=== PATIENT | female | born 1955 | race Caucasian/White ===

== ENCOUNTER → 2018-09-25 10:37 | Outpatient (CLI) | payer OTHER, SELFPAY ==
[2018-09-25 11:16] LABS: Add Manual Diff / Slide Review NO; Basophils Absolute Auto 100 /uL (0-100); Eosinophils Absolute Auto 600 /uL (0-450); Eosinophils Percent Auto 6.4 % (2-4); Hematocrit 44.9 % (36-46); Hemoglobin 15.3 g/dL (12.0-16.0); Lymphocytes Absolute Auto 2800 /uL (1100-4500); Lymphocytes Percent Auto 27.2 % (25-40); Mean Corpuscular HGB Conc 34.1 % (30-36); Mean Corpuscular Hemoglobin 31.3 PG (26-34); Mean Corpuscular Volume 91.7 fL (80-100); Monocytes Absolute Auto 800 /uL (0-900); Monocytes Percent Auto 7.4 % (3-14); Neutrophils Absolute Auto 5900 /uL (1500-7000); Platelet Count 304 X10^3/uL (150-400); Red Cell Distribution Width 13.2 % (11.6-14.8); White Blood Cell Count 10.2 X10^3/uL (4.5-11.0)
[2018-09-25 11:39] LABS: Erythrocyte Sedimentation Rate 6 MM/HR (0-20)
[2018-09-25 11:59] LABS: C-Reactive Protein Quant 1.2 mg/dL (<1.0); Uric Acid 3.7 mg/dL (2.5-6.2)
[2018-09-25 12:02] LABS: Rheumatoid Factor < 8.6 IU/mL (<12.0)
[2018-09-27 19:39] LABS: ANA Screen, IFA Negative (Negative)
== END ==
PROVIDERS: Visit Provider Orthopaedic Surgery
DX: M17.11 Unilateral primary osteoarthritis, right knee (principal); M23.91 Unspecified internal derangement of right knee
CPT/HCPCS: 36415; 84550; 85025; 85651; 86038; 86140; 86430

== ENCOUNTER → 2019-09-03 12:22 | Outpatient (CLI) | payer MEDICARE, OTHER, SELFPAY ==
--- NOTE | 2019-09-03 | DI.US.S_ITS ---
LIMITED ULTRASOUND OF RIGHT BREAST: 09/03/2019 CLINICAL: Right breast masses. Comparison is made to exams dated: 01/23/2019 mammogram - [facility], 12/21/2016 mammogram, and 12/16/2014 mammogram - [facility]. Real-time ultrasound of the right breast lower inner quadrant was performed on the area of interest. No discrete cystic or solid mass lesion identified in the area of palpable abnormality. IMPRESSION: NEGATIVE There is no sonographic evidence of malignancy. There is no abnormality seen in the right breast to correspond with the palpable abnormality in the lower inner quadrant, however, clinical followup is recommended. A 1 year screening mammogram is recommended. This exam was interpreted at Station ID: [id number]. Electronically Signed By: Hipolito sal/:09/03/2019 14:53:07 letter sent: Clinical Evaluation Ultrasound BI-RADS: 1 Negative
--- NOTE | 2019-09-03 | DI.US.S_ITS ---
LIMITED ULTRASOUND OF LEFT BREAST: 09/03/2019 CLINICAL: Left breast masses. Comparison is made to exams dated: 01/23/2019 mammogram - [facility], 12/21/2016 mammogram, and 12/16/2014 mammogram - [facility]. Real-time ultrasound of the left breast lower inner quadrant was performed on the area of interest. No discrete cystic or solid mass lesion identified in the area of palpable abnormality. IMPRESSION: NEGATIVE There is no sonographic evidence of malignancy. There is no abnormality seen in the left breast to correspond with the palpable abnormality in the lower inner quadrant, however, clinical followup is recommended. A 1 year screening mammogram is recommended. This exam was interpreted at Station ID: [id number]. Electronically Signed By: Hipolito sal/:09/03/2019 14:52:18 letter sent: Clinical Evaluation Ultrasound BI-RADS: 1 Negative
--- NOTE | 2019-09-03 | DI.MG.S_ITS ---
BILATERAL DIGITAL DIAGNOSTIC MAMMOGRAM 3D/2D: 09/03/2019 CLINICAL: Bilateral lumps. Comparison is made to exams dated: 01/23/2019 mammogram - [facility], 12/21/2016 mammogram, 12/16/2014 mammogram, 10/09/2012 mammogram, and 08/02/[address] - [facility]. There are scattered fibroglandular elements in both breasts. There are benign grouped fine calcifications within the skin of the right breast inferior region seen on the mediolateral oblique view only. There are benign grouped fine calcifications within the skin of the left breast inferior region seen on the mediolateral oblique view only. No other significant masses or calcifications are seen in either breast. IMPRESSION: INCOMPLETE: NEEDS ADDITIONAL IMAGING EVALUATION There is no abnormality seen in either breast to correspond with the palpable abnormality in the lower inner quadrant, however, ultrasound is recommended. This exam was interpreted at Station ID: [id number]. NOTE: For mammograms, a report in lay terms will be sent to the patient. Approximately 15% of breast malignancies will not be visualized mammographically. In the management of a palpable breast mass, a negative mammogram must not discourage biopsy of a clinically suspicious lesion. Electronically Signed By: Hipolito sal/marie:09/03/2019 13:55:40 ACR BI-RADS Category 0: Incomplete [id number]
== END ==
PROVIDERS: Referring Provider Nurse Practitioner Family; Visit Provider Nurse Practitioner Family
DX: R92.8 Other abnormal and inconclusive findings on diagnostic imaging of breast (principal); R92.1 Mammographic calcification found on diagnostic imaging of breast
CPT/HCPCS: 76642; 77066; G0279

== ENCOUNTER → 2021-12-22 13:32 | Outpatient (CLI) | payer MEDICARE, OTHER, SELFPAY ==
--- NOTE | 2021-12-22 | DI.MG.S_ITS ---
BILATERAL DIGITAL SCREENING MAMMOGRAM 3D/2D WITH CAD: 12/22/2021 CLINICAL: Routine screening. Family history of breast cancer. Comparison is made to exams dated: 09/03/2019 mammogram - [facility], 01/23/2019 mammogram - [facility], and 12/21/2016 mammogram - [facility]. There are scattered fibroglandular elements in both breasts. Current study was also evaluated with a Computer Aided Detection (CAD) system. No significant masses, calcifications, or other findings are seen in either breast. There has been no significant interval change. IMPRESSION: NEGATIVE There is no mammographic evidence of malignancy. A 1 year screening mammogram is recommended. Based on the Tyrer Cuzick model (a risk assessment model) the patient's lifetime risk is 14.6% and her 10 year risk is 8.2%. According to the ACR, ACS, and NCCN guidelines, an annual breast MRI exam along with mammogram is recommended if the patient's lifetime risk is 20% or greater. This exam was interpreted at Station ID: [id number]. NOTE: For mammograms, a report in lay terms will be sent to the patient. Approximately 15% of breast malignancies will not be visualized mammographically. In the management of a palpable breast mass, a negative mammogram must not discourage biopsy of a clinically suspicious lesion. Electronically Signed By: Abisai groves/marie:12/22/2021 14:16:16 letter sent: Normal Exam ACR BI-RADS Category 1: Negative [id number]
== END ==
PROVIDERS: PCP Nurse Practitioner Family; Referring Provider Nurse Practitioner Family; Visit Provider Nurse Practitioner Family
DX: Z12.31 Encounter for screening mammogram for malignant neoplasm of breast (principal); Z80.3 Family history of malignant neoplasm of breast
CPT/HCPCS: 77063; 77067

== ENCOUNTER → 2022-09-30 12:56 | Outpatient (CLI) | payer MEDICARE, OTHER, SELFPAY ==
--- NOTE | 2022-09-30 | DI.RAD.S_ITS ---
PROCEDURE: XR LUMBAR SPINE 2-3V INDICATIONS: LAB PAIN TECHNIQUE: 3 views of the lumbar spine were acquired. COMPARISON: None. FINDINGS: Bones: 5 [id number] vertebrae are present. There is normal bony alignment. No vertebral body compression fractures. No suspicious bony lesions. Severe disc height loss at L4-5. Moderate disc height loss at remaining levels. Facet arthrosis L4 through S1. Soft tissues: Overlying bowel gas pattern is normal. No suspicious soft tissue calcifications. IMPRESSION: Moderate to severe, multilevel degenerative disc disease and lower lumbar facet arthrosis. Dictated by: Hugh Callahan M.D. on 09/30/2022 at 14:48 Approved by: Hugh Callahan M.D. on 09/30/2022 at 14:49
== END ==
PROVIDERS: PCP Nurse Practitioner Family; Referring Provider Chiropractor; Visit Provider Chiropractor
DX: M51.36 Other intervertebral disc degeneration, lumbar region (principal); M47.816 Spondylosis without myelopathy or radiculopathy, lumbar region; M47.817 Spondylosis without myelopathy or radiculopathy, lumbosacral region; M54.50 Low back pain, unspecified
CPT/HCPCS: 72100

== ENCOUNTER → 2023-09-27 15:01 | Outpatient (CLI) | payer MEDICARE, OTHER, SELFPAY ==
--- NOTE | 2023-09-27 15:05 | DI.RAD.S_ITS ---
PROCEDURE: XR DEXA AXIAL SKELETON INDICATIONS: Encounter for screening for osteoporosis COMPARISON: [facility], [facility]RIL, DEXA AXIAL SKELETON, 07/13/2010, 14:01. FINDINGS: Lumbar Spine: L1-L2. Bone mineral density 0.793 g/cm2, T score -1.7. Left Hip: Bone mineral density 0.831 g/cm2, T score -0.9. Left Femoral Neck: Bone mineral density 0.632 g/cm2, T score -2.0. Right Hip: Bone mineral density 0.873 g/cm2, T score -0.6. Right Femoral Neck: Bone mineral density 0.675 g/cm2, T score -1.6. Fracture Risk Calculation (when applicable): 10-year fracture risk of a major osteoporotic fracture 11% and of a hip fracture 2.1%. (T score greater or equal to -1.0 to: NORMAL) (T score from -1.1 to -2.4: OSTEOPENIA) (T score less than or equal to -2.5: OSTEOPOROSIS) IMPRESSION: Osteopenia. Dictated by: Richard Hathaway M.D. on 09/28/2023 at 11:31 Approved by: Richard Hathaway M.D. on 09/28/2023 at 11:35
== END ==
LOC: RAD 15:03
PROVIDERS: Referring Provider Physician Assistant; Visit Provider Physician Assistant
DX: Z78.0 Asymptomatic menopausal state (principal); Z13.820 Encounter for screening for osteoporosis; M85.89 Other specified disorders of bone density and structure, multiple sites
CPT/HCPCS: 77080

== ENCOUNTER → 2025-01-16 14:53 | Outpatient (CLI) | payer MEDICARE, OTHER, SELFPAY ==
--- NOTE | 2025-01-16 14:54 | DI.US.S_ITS ---
PROCEDURE: US RENAL COMPLETE INDICATIONS: RECURRENT UTI TECHNIQUE: Real-time scanning was performed of the kidneys and bladder, with image documentation. COMPARISON: None. FINDINGS: Kidneys: Kidneys are normal in size. Right kidney measures 8.9 cm long; left kidney measures 10.5 cm long. Mild bilateral renal cortical thinning. Renal cortical echotexture is normal. No hydronephrosis or nephrolithiasis. No suspicious solid mass lesions. Bladder: Pre-void bladder volume is 152 mL. Post-void residual is 95 mL. Pre- void images demonstrate no intraluminal masses or stones. On pre-void images, bilateral ureteral jets are not visualized with color Doppler interrogation. (Of note, ureteral jets may not be detectable in up to 25% of cases due to insufficient differences in specific gravity between ureteral and bladder urine). Miscellaneous: No free pelvic fluid. IMPRESSION: Bilateral kidneys without evidence for nephrolithiasis or hydronephrosis. Mild bilateral renal cortical thinning which may be related to sequela of chronic medical renal disease. Dictated by: Valdez Snow M.D. on 01/17/2025 at 10:49 Approved by: Valdez Snow M.D. on 01/17/2025 at 11:04
== END ==
LOC: US 14:54
PROVIDERS: Referring Provider Registered Nurse; Visit Provider Registered Nurse
DX: N39.0 Urinary tract infection, site not specified (principal); N39.46 Mixed incontinence
CPT/HCPCS: 76770